=== PATIENT | female | born 1940 | race Caucasian/White ===

== ENCOUNTER 2022-03-17 15:15 | Inpatient (IN) | payer OTHER, BC ==
[2022-03-17 16:47] VITALS: BMI 19.7
[2022-03-17] MEDS ORDERED: SODIUM CHLORIDE 0.9% 1000 ML INFUS.BAG IV ONE (16:57)
[2022-03-17 18:02] LABS: HEMATOCRIT 39.1 % (32.4-45.2); HEMOGLOBIN 12.9 G/dL (10.7-15.3); MCH 32.7 pg (25.7-33.7); MEAN CELL VOLUME 98.9 fl (80-96); MEAN PLT VOLUME 7.9 fl (7.5-11.1); PLATELET COUNT 244.5 10^3/uL (134-434); RBC 3.95 10^6/uL (3.60-5.2); RDW 17.9 % (11.6-15.6); WHITE BLOOD COUNT 9.2 10^3/uL (4.0-10.8)
[2022-03-17] MEDS ORDERED: PIPERACILLIN/TAZOB 4.5 GM 4.5 GM in DEXTROSE 5%-WATER 100 ML IVPB ONE (18:03)
[2022-03-17] MEDS ORDERED: VANCOMYCIN 1 GM in D5W (PRE-DOCKED) 1,000 MG/250 ML IVPB ONE (18:03)
[2022-03-17 18:12] LABS: PLATELET ESTIMATE ADEQUATE
[2022-03-17] MEDS ORDERED: PIPERACILLIN/TAZOBACTAM 4.5 GM VIAL IVPB ONE (18:26)
[2022-03-17] MEDS ORDERED: VANCOMYCIN 1,000 MG VIAL (RESTRICTED TO ID ONLY) ONE (18:26)
[2022-03-17 19:48] LABS: ALBUMIN 2.7 g/dl (3.4-5.0); CREATININE 0.7 mg/dl (0.55-1.3); MAGNESIUM 2.1 mg/dL (1.8-2.4); TOT PROT 4.7 g/dl (6.4-8.2)
[2022-03-17 20:10] LABS: VENOUS BASE EXCESS -0.9 mmol/L (-2-2); VENOUS O2 SATURATION 85.4 % (70-80); VENOUS PCO2 37.1 mmHg (38-52); VENOUS PH 7.415 (7.310-7.410)
[2022-03-17] MEDS ORDERED: ACETAMINOPHEN 325 MG TABLET (FP) PO PRN (21:13)
[2022-03-17 21:15] LABS: PHOSPHOROUS 3.6 mg/dl (2.5-4.9)
[2022-03-17] MEDS ORDERED: levETIRAcetam XR 750 MG TAB PO SCH ×2 (22:00→22:06)
[2022-03-17] MEDS: MUPIROCIN CA 2% TOPICAL CREAM 15 GM TUBE TP SCH (22:40)
[2022-03-17] MEDS: ATORVASTATIN CA 40 MG TABLET (FP) PO SCH (23:53)
[2022-03-17] MEDS: APIXABAN 2.5 MG TABLET PO SCH (23:54)
[2022-03-17] MEDS: SODIUM CHLORIDE 1,000 ML IV SCH (23:58)
[2022-03-18] MEDS: PIPERACILLIN/TAZOB 3.375 GM 3.375 GM in DEXTROSE 5%-WATER - 50 ML IVPB SCH ×3 (05:14→21:00)
[2022-03-18] MEDS: levETIRAcetam XR 750 MG TAB PO SCH ×2 (06:26→16:47)
[2022-03-18] MEDS ORDERED: VANCOMYCIN/WATER FOR INJ (PEG) 750 MG/150 ML BAG IVPB SCH (07:00)
[2022-03-18] MEDS ORDERED: VANCOMYCIN 750 MG in DEXTROSE 5%-WATER - 250 ML IVPB SCH (07:15)
[2022-03-18 08:24] LABS: INR 1.47 (0.83-1.09)
[2022-03-18] MEDS: ASPIRIN COATED 81 MG TABLET.EC PO SCH (09:51)
[2022-03-18] MEDS: APIXABAN 2.5 MG TABLET PO SCH ×2 (09:51→21:10)
[2022-03-18] MEDS: FAMOTIDINE 20 MG TABLET PO SCH (09:51)
[2022-03-18] MEDS: MUPIROCIN CA 2% TOPICAL CREAM 15 GM TUBE TP SCH ×2 (09:51→21:10)
[2022-03-18 10:31] LABS: CREATININE 0.7 mg/dl (0.55-1.3)
[2022-03-18] MEDS: VANCOMYCIN/WATER FOR INJ (PEG) 750 MG/150 ML BAG IVPB SCH (21:01)
[2022-03-18] MEDS: ATORVASTATIN CA 40 MG TABLET (FP) PO SCH (21:09)
[2022-03-18] MEDS: SODIUM CHLORIDE 1,000 ML IV SCH (21:11)
[2022-03-19] MEDS: PIPERACILLIN/TAZOB 3.375 GM 3.375 GM in DEXTROSE 5%-WATER - 50 ML IVPB SCH ×3 (04:10→22:35)
[2022-03-19] MEDS: VANCOMYCIN/WATER FOR INJ (PEG) 750 MG/150 ML BAG IVPB SCH (06:26)
[2022-03-19 08:28] LABS: ALBUMIN 2.6 g/dl (3.4-5.0); BILIRUBIN,TOTAL 1.1 mg/dl (0.2-1); CALCIUM 7.9 mg/dl (8.5-10); CREATININE 0.5 mg/dl (0.55-1.3); TOT PROT 4.6 g/dl (6.4-8.2)
[2022-03-19] MEDS: MUPIROCIN CA 2% TOPICAL CREAM 15 GM TUBE TP SCH ×2 (09:23→22:39)
[2022-03-19] MEDS: ASPIRIN COATED 81 MG TABLET.EC PO SCH (09:23)
[2022-03-19] MEDS: APIXABAN 2.5 MG TABLET PO SCH ×2 (09:23→22:36)
[2022-03-19] MEDS: levETIRAcetam XR 750 MG TAB PO SCH ×2 (09:23→22:37)
[2022-03-19] MEDS: FAMOTIDINE 20 MG TABLET PO SCH (09:24)
[2022-03-19 10:34] LABS: BASO % 0.3 % (0-2.0); EOS % 0.1 % (0-4.5); HEMATOCRIT 34.9 % (32.4-45.2); HEMOGLOBIN 11.8 GM/dL (10.7-15.3); LYMPH % 15.8 % (8-40); MCH 33.4 pg (25.7-33.7); MCHC 33.7 g/dl (32.0-36.0); MEAN CELL VOLUME 99.1 fl (80-96); MEAN PLT VOLUME 7.8 fl (7.5-11.1); MONO % 4.7 % (3.8-10.2); NEUT % 79.1 % (42.8-82.8); PLATELET COUNT 233 10^3/uL (134-434); RBC 3.52 M/mm3 (3.60-5.2); RDW 19.3 % (11.6-15.6); WHITE BLOOD COUNT 6.5 K/mm3 (4.0-10.0)
[2022-03-19] MEDS ORDERED: POTASSIUM CHLORIDE TABS 10 MEQ TABLET.ER (FP) PO ONE (11:24)
[2022-03-19] MEDS: VANCOMYCIN 750 MG in DEXTROSE 5%-WATER - 250 ML IVPB SCH (18:13)
[2022-03-19] MEDS ORDERED: D5-NS + 20 MEQ KCL - 20 MEQ/1,000 ML INFUS.BAG IV SCH ×2 (19:30)
[2022-03-19] MEDS: ATORVASTATIN CA 40 MG TABLET (FP) PO SCH (22:36)
[2022-03-20] MEDS: PIPERACILLIN/TAZOB 3.375 GM 3.375 GM in DEXTROSE 5%-WATER - 50 ML IVPB SCH ×2 (05:03→12:04)
[2022-03-20] MEDS: VANCOMYCIN 750 MG in DEXTROSE 5%-WATER - 250 ML IVPB SCH (07:45)
[2022-03-20 09:09] LABS: ALBUMIN 2.7 g/dl (3.4-5.0); BILIRUBIN,TOTAL 1.2 mg/dl (0.2-1); CALCIUM 8.2 mg/dl (8.5-10); CREATININE 0.5 mg/dl (0.55-1.3); MAGNESIUM 1.7 mg/dL (1.8-2.4); TOT PROT 4.9 g/dl (6.4-8.2)
[2022-03-20] MEDS ORDERED: POTASSIUM CHLORIDE TABS 20 MEQ TABLET.ER (FP) PO ONE (09:27)
[2022-03-20] MEDS: MUPIROCIN CA 2% TOPICAL CREAM 15 GM TUBE TP SCH (09:55)
[2022-03-20] MEDS: levETIRAcetam XR 750 MG TAB PO SCH (09:56)
[2022-03-20] MEDS: APIXABAN 2.5 MG TABLET PO SCH (09:56)
[2022-03-20] MEDS: FAMOTIDINE 20 MG TABLET PO SCH (09:56)
[2022-03-20] MEDS: ASPIRIN COATED 81 MG TABLET.EC PO SCH (09:56)
[2022-03-20 09:59] LABS: BASO % 0.5 % (0-2.0); EOS % 0.2 % (0-4.5); HEMATOCRIT 37.9 % (32.4-45.2); HEMOGLOBIN 12.6 GM/dL (10.7-15.3); LYMPH % 15.4 % (8-40); MCHC 33.3 g/dl (32.0-36.0); MEAN PLT VOLUME 7.5 fl (7.5-11.1); NEUT % 79.9 % (42.8-82.8); PLATELET COUNT 245 10^3/uL (134-434); RBC 3.83 M/mm3 (3.60-5.2); RDW 18.9 % (11.6-15.6); WHITE BLOOD COUNT 6.5 K/mm3 (4.0-10.0)
[2022-03-20] MEDS ORDERED: MAGNESIUM SULF 50% (8.12 MEQ/2 ML-1 GM VIAL) IVPB ONE (12:22)
[2022-03-20 13:34] VITALS: BP 141/64; PULSE 68; RESP 16; TEMP 97.4
[2022-03-20] MEDS: KCL 10 MEQ IVPB 10 MEQ/100 ML INFUS.BAG IVPB SCH ×2 (13:45→14:32)
== END 2022-03-20 15:23 | disposition home or self-care (01) | DRG 603 ==
LOC: FER 15:15 → FM/S 21:15
PROVIDERS: ADMIT Family Medicine
DX: L03.116 Cellulitis of left lower limb (principal); C71.9 Malignant neoplasm of brain, unspecified; E86.0 Dehydration; I48.91 Unspecified atrial fibrillation; I10 Essential (primary) hypertension; R68.0 Hypothermia, not associated with low environmental temperature; J45.909 Unspecified asthma, uncomplicated; E78.5 Hyperlipidemia, unspecified; S81.802A Unspecified open wound, left lower leg, initial encounter; B95.7 Other staphylococcus as the cause of diseases classified elsewhere; E87.6 Hypokalemia; I34.1 Nonrheumatic mitral (valve) prolapse; F03.90 Unspecified dementia, unspecified severity, without behavioral disturbance, psychotic disturbance, mood disturbance, and anxiety; G40.909 Epilepsy, unspecified, not intractable, without status epilepticus
CPT/HCPCS: 0241U-QW; 36415; 70450-TC; 71045-TC-FY; 80048; 80053; 82803; 82962; 83605; 83735; 84100; 84484; 85025; 85027; 85610; 85730; 86850; 86900; 86901; 87040; 87070; 87205; 93005; 97116-GP; 97162-GP; 99291